=== PATIENT | female | born 1960 | race Caucasian/White ===

== ENCOUNTER 2017-05-18 11:00 | Inpatient (IN) | payer OTHER ==
[~2017-05-18] VITALS: Ht 162.6 cm; Wt 87.9 kg
[2017-05-26] MEDS ORDERED: ESCI20TA PO (11:19)
[2017-05-26] MEDS ORDERED: LEVO88TA2 PO (11:19)
[2017-05-26] MEDS ORDERED: MELO-1 PO (11:19)
[2017-05-26] MEDS ORDERED: ATOR20TA15 PO (11:19)
--- NOTE | 2017-05-26 17:39 | MH ---
cc: Ovidio WORRELL M.D. DATE OF ADMISSION: 06/01/2017 ADMITTING DIAGNOSIS: Failed partial knee replacement left knee now being admitted for conversion to a left total knee. ADMISSION HISTORY AND PHYSICAL This follow this 56-year female is being admitted today for conversion of left total knee to with a partial knee to a full total knee revision, secondary to failure. OTHER PAST HISTORY: The patient has a history of a arthritis Depression Back pain Thyroid issues High cholesterol. MEDICATIONS The patient is currently taking medications including; 1. Avastin 2. Levothyroxine 3. Pantoprazole PREVIOUS SURGERIES: Previous surgeries include the partial knee replacement on the left knee 2 years ago. She has had surgery on her back. Hand surgery. Hysterectomy. SOCIAL HISTORY: She does not smoke, drinks some alcohol and has. no known allergies. REVIEW OF SYSTEMS Noncontributory. FAMILY HISTORY Noncontributory. PHYSICAL EXAMINATION IN GENERAL: We find a 56-year female well-developed, well-nourished, alert and oriented x3. complaining of pain in the left knee. VITAL SIGNS: Blood pressure 132/84, pulse 90 and regular, respirations 18, temperature 97.9, pulse oximetry 96% on room air. HEAD, EYES, EARS, NOSE, AND THROAT: Eyes Pupils equal, round, reactive to light and accommodation. Extraocular muscles intact, Ears, nose, mouth clear. NECK: Supple. LUNGS: Clear. HEART: Regular rate. ABDOMEN: Soft. Positive bowel sounds, nontender. EXTREMITIES: The left knee have crepitance on range of motion NEUROLOGIC: Neurovascularly her toes. IMPRESSION Failed partial knee replacement left knee. PLAN Admission for a revision left total knee, partial knee november, total knee today. The patient understands procedure well and risks involved and is given prescription postoperative pain anticoagulation control in the office plans on going home after surgical stay in the hospital. MD MAC Rick/shayy /5:13 PM /5:21 PM
[2017-06-01] MEDS ORDERED: LACTATED RINGER'S 1000 ML IV PRN (06:15)
[2017-06-01] MEDS ORDERED: METOPROLOL TARTRATE 25 MG TAB PO PRN (06:15)
[2017-06-01] MEDS ORDERED: INSULIN HUMAN REGULAR 1,000 UNITS/10 ML VIAL SQ PRN (06:15)
[2017-06-01] MEDS ORDERED: POVIDONE IODINE 5% (ANTISEPSIS KIT) 4 APPLICATIONS EACH NARE PRN (06:15)
[2017-06-01] MEDS ORDERED: CHLORHEXIDINE GLUCONATE 2 % 1 PACK (2 CLOTHS) TOPICAL PRN (06:15)
[2017-06-01] MEDS ORDERED: SODIUM CHLORID 0.9% 500 ML IV PRN (06:15)
[2017-06-01] MEDS ORDERED: TRANEXAMIC ACID INJ 880 MG in SODIUM CHLORIDE 0.9% INJ 100 ML IV SCH ×4 (06:30)
[2017-06-01] MEDS ORDERED: CHLORHEXIDINE GLUCONATE 4% SOLN 120 ML BTL TOPICAL SCH (06:30)
[2017-06-01] MEDS ORDERED: VANCOMYCIN 1000 MG/NS 250 ML (for <70 kg) IV SCH ×2 (06:30)
[2017-06-01] MEDS ORDERED: EXPAREL PERI-ARTICULAR INJECTION (TOTAL VOL. 120 ML) P-ARTICULR SCH ×2 (06:30)
[2017-06-01] MEDS ORDERED: ceFAZolin 2 GM PREMIX 50 ML IV SCH (06:30)
[2017-06-01] MEDS ORDERED: TOBRAMYCIN SULFATE 1200 MG VIAL ONE ×2 (06:40→10:21)
[2017-06-01] MEDS ORDERED: ceFAZolin INJ 1,000 MG VIAL ONE (06:41)
[2017-06-01] MEDS ORDERED: ACETAMINOPHEN 1000 MG/100 ML 100 ML IV ONE (07:36)
[2017-06-01] MEDS ORDERED: FAMOTIDINE 20 MG/2 ML VIAL ONE (07:36)
--- NOTE | 2017-06-01 11:28 | HHI.FF ---
Face to Face Verification Diagnosis: (1) Status post revision of total replacement of left knee Physical Therapy Gait training Knee: Total knee, Protocol: Left, Full weight bearing Canvas Knee Splint: When in bed & 2 pillows btw thighs Nursing RN: 3 days/week x 2 weeks Nursing: Dressing changes Dressing Changes: Daily dressing change, 4x4s, Gauze, Paper tape I have seen patient Isamar Kenyon on 06/01/17. My clinical findings support the need for the requested home health care services because: Limited ability to care for self High risk of falls I certify that my clinical findings support that this patient is homebound because: Unsteady gait/balance Ovidio Clark MD Jun 01, 2017 11:28
[2017-06-01] MEDS ORDERED: ACETAMINOPHEN 325 MG TAB PO PRN (11:30)
[2017-06-01] MEDS ORDERED: WALKER WHEELS/F1 MIS (11:30)
[2017-06-01] MEDS ORDERED: SODIUM CHLORIDE 0.9% FLUSH 5 ML FLUSH IVF PRN (11:30)
[2017-06-01] MEDS ORDERED: Post-op Orders (for Pharmacy) MISC XX ONE (11:30)
[2017-06-01] MEDS ORDERED: ONDANSETRON HCL 4 MG/2 ML VIAL IVP PRN (11:30)
[2017-06-01] MEDS ORDERED: CPMMACHINE (11:30)
[2017-06-01] MEDS ORDERED: diphenhydrAMINE HCL 50 MG/ML VIAL IV PUSH PRN (11:30)
[2017-06-01] MEDS ORDERED: TRANEXAMIC ACID INJ 0 MG in SODIUM CHLORIDE 0.9% INJ 100 ML IV SCH (11:30)
[2017-06-01] MEDS ORDERED: NALOXONE HCL 0.4 MG/ML AMP IV PUSH PRN (11:30)
[2017-06-01] MEDS ORDERED: ADJUSTABLE COMM1 MIS (11:30)
[2017-06-01] MEDS ORDERED: DO NOT ADM ANY ANTICOAGULANT DRUGS PRN (11:37)
--- NOTE | 2017-06-01 11:41 | HHI.PR ---
Immediate Post Op Note Procedure Date: Jun 01, 2017 Pre Op Diagnosis: Failed partial knee replacement left knee Post Op Diagnosis: Failed partial knee replacement left knee Surgeon: Ovidio Clark MD Senior Talent Acquisition Specialist(s): Radha SIMPSON Procedure: partial knee replacement left knee conversion to a left total knee. Complications: none Specimen(s) removed: Left knee fluid Estimated blood loss: 200 cc Anesthesia: General Drains: None IVF Urinary Output (mLs): 0 (no rachel) Tourniquet time (min at mmHg) Left thigh 300 mmHg for 95 minutes Patient to: PACU Patient Condition: Good Implant/Devices: SEE IMPLANT LOG (if applicable) Date/Time of Procedure: SEE SURGICAL CARE RECORD Radha Fuller Jun 01, 2017 11:41
[2017-06-01] MEDS: LACTATED RINGER'S 1000 ML INJ 1,000 ML IV SCH ×2 (11:49→23:51)
[2017-06-01] MEDS ORDERED: *morphine SULFATE 8 MG/ML PERIprocedure ONLY ONE ×2 (11:53→12:56)
--- NOTE | 2017-06-01 12:26 | RADRPT ---
EXAM DATE/TIME: 06/01/2017 11:54 [facility] COMPARISON: KNEE LEFT LTD (1 OR 2VWS), December 18, 2014, 13:00. INDICATIONS : Total left knee replacemtn. MEDICAL HISTORY : Osteoarthritis. SURGICAL HISTORY : None. ENCOUNTER: Initial ACUITY: 1 day PAIN SCORE: Non-responsive. LOCATION: Left knee FINDINGS: AP and lateral views of the knee following arthroplasty reveals a prosthesis in anatomic alignme nt. Surgical drains are evident. Fracture is not appreciated. IMPRESSION: Status post total knee arthroplasty. Noe Culver MD FACR Board Certified Radiologist. This report was verified electronically.
--- NOTE | 2017-06-01 13:16 | MP ---
cc: Ovidio WORRELL M.D. DATE OF SURGERY 06/01/2017 PREOPERATIVE DIAGNOSIS Failed unicondylar knee arthroplasty left knee. POSTOPERATIVE DIAGNOSIS Failed unicondylar knee arthroplasty left knee. SURGERY PERFORM Revision of left knee arthroplasty to full total knee. SURGEON Dr. Worrell CLIENT SOLUTIONS SPECIALIST CALVIN Michael ANESTHESIA General intubation and block PROCEDURE FOLLOWS After successful induction of anesthesia, the patient is placed on the operating room table in the supine position. The knee is prepped and draped in the usual manner. A tourniquet is inflated at the upper thigh and set to 300 mmHg pressure after exsanguination of the lower extremity. A longitudinal incision is made extending from 3 inches proximal to the superior pole of the patella, across the patella in longitudinal fashion, and down past the insertion of the tibial tubercle into the proximal tibia. The incision is carried down through subcutaneous tissue along the medial aspect of the patella and retinaculum, down through the capsule to expose the knee joint. The patella and patellar tendon are freed up enough to allow the patella to be inverted and retracted off the lateral side of the knee joint. The knee joint is left exposed. Small osteophytes are removed. All soft tissue is removed to allow proper position of the femoral and tibial cutting jig guide. The first femoral jig is then inserted along the distal end of the femur after first measuring to decide whether this is a small, medium, or large component. The notch is then drilled and the tibial cutting guide inserted into the femoral cutting guide, along with the ankle brace to allow for proper measurement of the tibial cutting surface that needed to be resected. Pins are inserted into the tibial cutting jig and femoral cutting jig to hold them in place. An oscillating saw is then used to resect the surface of the tibia. The surface of the tibia is then completely removed using sharp and blunt dissection. The anterior and posterior cuts of the femur are then made as well using an oscillating saw through the cutting guide. All guides are then removed and the varus/valgus angulation cutting guide applied to the femur for proper measurement of the proper amount of valgus. The anterior cutting guide for the femur is then inserted at the anterior femoral cuts made. Next, the first block trial is inserted into the femur to allow for proper condyle drill holes to be made which are then made followed by removal of the bone between the condyles using an oscillating saw as well as the bone removed at the most posterior surface of the condyle. After this, this guide is removed and the chamfer cuts made using the chamfer cutting guide from both anterior and posterior. Next, the femoral trial is then inserted, the tibial surface reflected anterior to expose the tibial surface and a tibial stem guide is inserted after first measuring for a standard, standard plus, large, or large plus surface to be used. After the stem is impacted the trial tibial surface is applied followed by the trial meniscal components. After full range of motion is found with the appropriate length meniscal components varying the patella is prepared by resecting the posterior aspect of the patella using an oscillating saw, inserting a trial. The trial is then removed and the cruciate cutting guide applied using the bur to cut the cruciate cuts. After cruciate cuts are made all trials are removed. The partial knee replacement that was in there was removed by doing the standard cuts and using osteotomes to remove the old prosthesis. Culture and sensitivity revealed a few white cells. No bacteria seen. Antibiotics were then given. The wound is irrigated copiously with antibiotic solution and Water Pik and the actual components inserted into place using Consensus knee system, size 3 femur, 2 tibia and 1 patella with three batches of antibiotic-impregnated Seafileuy cement. After the cement has hardened and the components are found to have full range of motion with no instability, the tourniquet deflated, total tourniquet time being 95 minutes at 300 mmHg pressure. The deep fascia was approximated with running #2 Quill, the subcutaneous tissue approximated with interrupted running 2-0 and 3-0 Monocryl sutures, Steri-Strips, sterile dressing and knee immobilizer. 100 cc of Exparel was also utilized for extra pain control. The patient tolerated the procedure well and left the Operating Room in satisfactory condition. ESTIMATED BLOOD LOSS 200 cc. COUNTS Sponge and suture counts were correct. Fatou SIMPSON was present during the entire procedure to include patient positioning and the procedure. The medical necessity of a nurse practitioner first aid trainer was indicated in this case due to the surgical complexity of the case itself. During the surgical case the hand frame surgical elastic knitter was working the back table while my operating room surgical technician CALVIN was directly assisting me. J. MD MAC Everett/JOSUE /11:32 AM /1:03 PM
[2017-06-01] MEDS ORDERED: ONDANSETRON HCL 4 MG/2 ML VIAL IV PUSH ONE (14:49)
[2017-06-01] MEDS ORDERED: MIDAZOLAM HCL 2 MG/2 ML VIAL IV ONE (14:49)
[2017-06-01] MEDS ORDERED: GLYCOPYRROLATE 1 MG/5 ML SYRINGE IV PUSH ONE (14:49)
[2017-06-01] MEDS ORDERED: PHENYLEPH/NS 1000 MCG/10 ML SYR IV ONE (14:49)
[2017-06-01] MEDS ORDERED: NEOSTIGMINE 3 MG/3 ML SYR IV ONE (14:49)
[2017-06-01] MEDS ORDERED: LACTATED RINGER'S 1000 ML INJ 1,000 ML IV ONE (14:49)
[2017-06-01] MEDS ORDERED: ROCURONIUM INJ 50 MG/5 ML SYRINGE IV PUSH ONE (14:49)
[2017-06-01] MEDS ORDERED: ePHEDrine/NS 25 MG/5 ML SYR IV ONE (14:49)
[2017-06-01] MEDS ORDERED: MORPHINE SULFATE 4 MG/ML INJ IV ONE (14:49)
[2017-06-01] MEDS ORDERED: LABETALOL HCL 20 MG/4 ML VIAL IV ONE (14:49)
[2017-06-01] MEDS ORDERED: DEXAMETHASONE SOD PHOS 4 MG/ML VIAL IV ONE (14:49)
[2017-06-01] MEDS ORDERED: PROPOFOL 200 MG/20 ML AMP IV ONE (14:49)
[2017-06-01] MEDS ORDERED: LIDOCAINE HCL 1% PF 5 ML AMPULE OTHER ONE (14:49)
[2017-06-01] MEDS: MORPHINE SULFATE 4 MG/ML INJ IV PUSH PRN ×2 (16:20→20:38)
[2017-06-01 16:30] VITALS: BP 127/65; PULSE 90; RESP 16; TEMP 96.3; O2SAT 95
[2017-06-01] MEDS: ACETAMINOPHEN/HYDROcodone 325 MG/7.5 MG TAB PO PRN ×2 (18:34→23:27)
[2017-06-01 20:38] VITALS: BP 109/65; PULSE 81; RESP 18; TEMP 97.6
[2017-06-01] MEDS: SODIUM CHLORIDE 0.9% FLUSH 5 ML FLUSH IVF SCH (20:39)
[2017-06-01] MEDS: ATORVASTATIN 20 MG TAB PO SCH (20:39)
[2017-06-01] MEDS ORDERED: TEMAZEPAM 15 MG CAP PO PRN (21:00)
[2017-06-02] VITALS (7 sets, daily range): BP systolic 104–154; BP diastolic 59–81; PULSE 70–96; RESP 16–18; TEMP 96.4–98.5; O2SAT 95–99
[2017-06-02] MEDS: MORPHINE SULFATE 4 MG/ML INJ IV PUSH PRN ×2 (02:01→06:00)
[2017-06-02] MEDS: LACTATED RINGER'S 1000 ML INJ 1,000 ML IV SCH ×3 (02:02→22:24)
[2017-06-02] MEDS: ACETAMINOPHEN/HYDROcodone 325 MG/7.5 MG TAB PO PRN ×4 (03:26→22:23)
[2017-06-02] MEDS: LEVOTHYROXINE SODIUM 88 MCG TAB PO SCH (06:00)
[2017-06-02] MEDS: ESCITALOPRAM OXALATE 20 MG TAB PO SCH (08:10)
[2017-06-02] MEDS: SODIUM CHLORIDE 0.9% FLUSH 5 ML FLUSH IVF SCH ×2 (09:00→22:24)
[2017-06-02 09:06] LABS: HEMATOCRIT 32.6 % (35.0-46.0); REVIEW FLAG FINAL
--- NOTE | 2017-06-02 10:45 | PD.ORT.PN ---
Subjective Subjective Remarks Pt comfortable but has developed a rash on the operative leg that she associates with the sheepskin from the CPM machine. Objective Vitals Vital Signs Date Time Temp Pulse Resp B/P (MAP) Pulse Ox O2 Delivery O2 Flow Rate FiO2 06/02/17 08:00 97.2 96 16 104/81 (89) 96 06/02/17 04:10 97.7 88 18 110/59 (76) 95 06/02/17 00:20 96.4 96 18 154/78 (103) 96 06/01/17 20:38 97.6 81 18 109/65 (80) 06/01/17 16:40 16 06/01/17 16:30 96.3 90 16 127/65 (85) 95 06/01/17 16:00 97.2 85 16 127/62 (83) 95 Nasal Cannula 2 06/01/17 15:20 81 14 93 Nasal Cannula 2 06/01/17 15:00 100 16 129/68 (88) 95 Room Air 06/01/17 14:45 87 16 115/60 (78) 95 Nasal Cannula 2 06/01/17 14:00 80 16 119/64 (82) 97 Nasal Cannula 2 06/01/17 13:15 84 16 137/64 (88) 95 Nasal Cannula 2 06/01/17 12:30 90 16 148/76 (100) 97 Nasal Cannula 2 06/01/17 12:15 89 16 158/74 (102) 97 Nasal Cannula 2 06/01/17 12:00 88 16 148/66 (93) 97 Nasal Cannula 2 06/01/17 11:45 94 16 158/74 (102) 95 Nasal Cannula 2 06/01/17 11:34 97.9 90 16 165/75 (105) 94 Nasal Cannula 2 I/O 06/01/17 06/01/17 06/01/17 06/02/17 06/02/17 06/02/17 07:00 15:00 23:00 07:00 15:00 23:00 Intake Total 1960 ml 1318 ml 1090 ml 240 ml Output Total 3450 ml Balance -1490 ml 1318 ml 1090 ml 240 ml Intake Oral 360 ml 780 ml 240 ml IV Total 1600 ml 538 ml 1090 ml Output Urine Total 250 ml Estimated Blood Loss 200 ml Other 3000 ml # Voids 2 2 # Bowel Movements 0 0 Result Diagram: 06/02/17 0820 Objective Remarks Rash is macular and not near the incision line. She is otherwise neurovascularly intact to her toes. There is no calf tenderness. She is sitting up in a chair. Assessment & Plan Ortho Post Op Day #: 1 Problem List: Assessment and Plan Cortisone cream for the rash. Continue with physical therapy out of bed. Plan on home over the next few days with home healthcare and physical therapy. Ovidio Clark MD Jun 02, 2017 10:45
[2017-06-02] MEDS: APIXABAN 2.5 MG TABLET PO SCH ×2 (13:07→22:19)
[2017-06-02] MEDS: MULTIVITAMINS/MINERALS THERAPEUTIC TAB PO SCH (22:19)
[2017-06-02] MEDS: ATORVASTATIN 20 MG TAB PO SCH (22:19)
[2017-06-02] MEDS: DOCUSATE SODIUM 100 MG CAP PO SCH (22:19)
[2017-06-03 00:05] VITALS: BP 151/71; PULSE 116; RESP 16; TEMP 99.4; O2SAT 92
[2017-06-03 04:10] VITALS: BP 134/33; PULSE 112; RESP 17; TEMP 99.5; O2SAT 92
[2017-06-03] MEDS: ACETAMINOPHEN/HYDROcodone 325 MG/7.5 MG TAB PO PRN ×4 (04:16→13:45)
[2017-06-03] MEDS: LEVOTHYROXINE SODIUM 88 MCG TAB PO SCH (06:22)
[2017-06-03 07:08] LABS: HEMATOCRIT 29.8 % (35.0-46.0); REVIEW FLAG FINAL
--- NOTE | 2017-06-03 07:52 | PD.ORT.PN ---
Subjective Subjective Remarks Pt comfortable and feels the rash is better today. Objective Vitals Vital Signs Date Time Temp Pulse Resp B/P (MAP) Pulse Ox O2 Delivery O2 Flow Rate FiO2 06/03/17 04:10 99.5 112 17 134/33 (66) 92 06/03/17 00:05 99.4 116 16 151/71 (97) 92 06/02/17 20:10 97.2 96 16 131/59 (83) 99 06/02/17 16:00 98.5 88 16 108/68 (81) 96 06/02/17 12:00 96.9 70 16 116/60 (78) 95 06/02/17 11:02 98 06/02/17 08:00 97.2 96 16 104/81 (89) 96 I/O 06/02/17 06/02/17 06/02/17 06/03/17 06/03/17 06/03/17 07:00 15:00 23:00 07:00 15:00 23:00 Intake Total 1090 ml 840 ml 480 ml 240 ml Balance 1090 ml 840 ml 480 ml 240 ml Intake Oral 840 ml 480 ml 240 ml IV Total 1090 ml # Voids 5 3 1 # Bowel Movements 0 0 0 Result Diagram: 06/03/17 0637 Objective Remarks She is otherwise neurovascularly intact to her toes. There is no calf tenderness. She is in bed at present. Assessment & Plan Ortho Post Op Day #: 2 Problem List: Assessment and Plan Home today after physical therapy with instructions for home healthcare and physical therapy. Follow-up in the office next week. Ovidio Clark MD Jun 03, 2017 07:52
--- NOTE | 2017-06-03 07:55 | HHI.DS ---
Discharge Summary Admission Date Jun 01, 2017 at 05:56 Discharge Date: Jun 03, 2017 Admitting Diagnosis Failed left knee arthroplasty. Diagnosis: (1) Status post revision of total replacement of left knee Diagnosis: Principal ICD Codes: Z96.652 - Presence of left artificial knee joint Brief History This is a 56 year old female patient CBC/BMP: 06/03/17 0637 Significant Findings Laboratory Tests Test 06/02/17 08:20 06/03/17 06:37 Hemoglobin 11.1 GM/DL (11.6-15.3) 10.5 GM/DL (11.6-15.3) Hematocrit 32.6 % (35.0-46.0) 29.8 % (35.0-46.0) PE at Discharge She is otherwise neurovascularly intact to her toes. There is no calf tenderness. She is in bed at present. Hospital Course Patient underwent a revision to a full total knee arthroplasty of her left knee on day of admission. She received a course of prophylactic IV antibiotics and within 23 hours started on anticoagulation therapy. She continued to improve remaining afebrile vital signs stable began out of bed tolerating food and fluid and physical therapy well. She did develop a macular rash which faded on postoperative day 2. She was discharged to home on postoperative day 2 in good condition with instructions for continuation of physical therapy and daily wound care. She has instructions for follow-up in the office the following week for recheck. Pt Condition on Discharge: Good Discharge Disposition: Disch w/ Home Health Serv Discharge Instructions Diet Instructions: As Tolerated, No Restrictions Activities You Can Perform: Full Weight Bearing, Shower Only-No Bath Activities to Avoid: Bathing, Driving Ovidio Clark MD Jun 03, 2017 07:55
[2017-06-03 08:00] VITALS: BP 122/61; PULSE 104; RESP 18; TEMP 96.9; O2SAT 94
[2017-06-03] MEDS: MULTIVITAMINS/MINERALS THERAPEUTIC TAB PO SCH (08:42)
[2017-06-03] MEDS: ESCITALOPRAM OXALATE 20 MG TAB PO SCH (08:42)
[2017-06-03] MEDS: DOCUSATE SODIUM 100 MG CAP PO SCH (08:42)
[2017-06-03] MEDS: APIXABAN 2.5 MG TABLET PO SCH (08:42)
[2017-06-03] MEDS: SODIUM CHLORIDE 0.9% FLUSH 5 ML FLUSH IVF SCH (08:48)
[2017-06-03] MEDS ORDERED: BACITRACIN OINT 0.9 GM PKT TOP PRN (10:15)
[2017-06-03 12:00] VITALS: BP 127/59; PULSE 102; RESP 18; TEMP 98.1; O2SAT 96
[2017-06-03] MEDS: LACTATED RINGER'S 1000 ML INJ 1,000 ML IV SCH (13:21)
== END 2017-06-03 16:11 | disposition home health service (06) | DRG 468 ==
LOC: HSDI 06-01 05:56 → N06B 06-01 16:44
PROVIDERS: ADMIT Surgery; ATTEND Surgery
PROC: 0SRD0J9 Replacement of Left Knee Joint with Synthetic Substitute, Cemented, Open Approach (ICD-10-PCS; 2017-06-01)
PROC: 3E0T3BZ Introduction of Anesthetic Agent into Peripheral Nerves and Plexi, Percutaneous Approach (ICD-10-PCS; 2017-06-01)
PROC: 0SPD0JZ Removal of Synthetic Substitute from Left Knee Joint, Open Approach (ICD-10-PCS; principal; 2017-06-01 07:59)
DX: T84.093A Other mechanical complication of internal left knee prosthesis, initial encounter (principal); E78.00 Pure hypercholesterolemia, unspecified; R21 Rash and other nonspecific skin eruption; Y79.2 Prosthetic and other implants, materials and accessory orthopedic devices associated with adverse incidents
CPT/HCPCS: 73560; 85014; 85018; 86850; 86900; 86901; 87070; 87205; 94150; C1776; C9290; J0131; J0690; J1100; J1200; J2250; J2270; J2370; J2405; J2710; J3010; J3260; J3370; J7050; J7120; L1830

== ENCOUNTER → 2017-05-26 | Outpatient (CLI) | payer OTHER ==
[~2017-05-26] MED LIST: ADJUSTABLE COMM1 MIS; ATOR20TA15 PO; CPMMACHINE; ESCI20TA PO; EXTR500C PO; LEVO88TA2 PO; MELO-1 PO; WALKER WHEELS/F1 MIS
[2017-05-26 10:42] LABS: HEMATOCRIT 40.4 % (35.0-46.0); MEAN CELL VOLUME 87.2 FL (80.0-100.0); MEAN CORPUSCULAR HEMOGLOBIN 29.3 PG (27.0-34.0); MEAN CORPUSCULAR HGB CONC 33.6 % (32.0-36.0); PLATELET COUNT 265 TH/MM3 (150-450); RED BLOOD COUNT 4.63 MIL/MM3 (4.00-5.30); RED CELL DISTRIBUTION WIDTH 13.4 % (11.6-17.2); REVIEW FLAG FINAL; WHITE BLOOD COUNT 5.2 TH/MM3 (4.0-11.0)
[2017-05-26 10:50] LABS: GLUCOSE,URINE NEG (NEG); KETONE, URINE NEG (NEG); MUCUS URINE FEW /lpf (OCC); PH, URINE 6.5 (5.0-8.5); SQUAMOUS EPITHELIAL CELL URINE 1 /hpf (0-5); URINE COLOR YELLOW (YELLW/STRAW)
[2017-05-26 10:51] LABS: BLOOD, URINE TRACE (NEG)
[2017-05-26 10:52] LABS: COMMENT (UR) CULT NOT INDICATED; CULTURE IF INDICATED CULT NOT INDICATED; NITRITE,URINE NEG (NEG)
[2017-05-26 10:58] LABS: APTT (PATIENT) 28.5 SEC (24.3-30.1); INTERNATIONAL NORMALIZED RATIO 0.9 RATIO; PROTHROMBIN TIME - PATIENT 10.3 SEC (9.8-11.6)
[2017-05-26 11:05] LABS: ANION GAP 8 MEQ/L (5-15); AST (GOT) 18 U/L (15-37); BICARBONATE 25.9 MEQ/L (21.0-32.0); BLOOD UREA NITROGEN 12 MG/DL (7-18); CHLORIDE 107 MEQ/L (98-107); GLOMERULAR FILTRATION RATE 120 ML/MIN (>89); GLUCOSE,FASTING 97 MG/DL (74-99); POTASSIUM 4.1 MEQ/L (3.5-5.1); SODIUM (NA) 141 MEQ/L (136-145)
[2017-05-26 11:06] LABS: ALT (GPT) 22 U/L (10-53)
[2017-05-26 11:08] LABS: ALKALINE PHOSPHATASE 136 U/L (45-117); TOTAL BILIRUBIN ADULT 0.6 MG/DL (0.2-1.0)
--- NOTE | 2017-05-26 13:22 | EKG ---
Date Performed: 05/26/2017 Time Performed: 09:36:34 PTAGE: 56 years EKG: Sinus rhythm NORMAL ECG PREVIOUS TRACING : 12/18/2014 09.19 Compared to prior tracing no significant change DOCTOR: Chauncey Rodriguez Interpretating Date/Time 05/26/2017 13:21:35
== END ==
LOC: CPRE 09:03
PROVIDERS: ATTEND Surgery
DX: Z01.812 Encounter for preprocedural laboratory examination (principal); Z01.810 Encounter for preprocedural cardiovascular examination
CPT/HCPCS: 36415; 80053; 81001; 85027; 85610; 85730; 93005

== ENCOUNTER → 2017-08-06 | Day surgery (SDC) | payer OTHER ==
--- NOTE | 2017-08-05 12:51 | MH ---
cc: Ovidio WORRELL M.D. DATE OF ADMISSION 08/06/2017 ADMITTING DIAGNOSIS Frozen left total knee arthroplasty, now being admitted for manipulation under anesthesia, left knee. HISTORY OF PRESENT ILLNESS This 56-year-old female is being admitted today almost nine weeks status post revision left total knee arthroplasty. She has a frozen left knee and is now for manipulation. PAST MEDICAL HISTORY 1. Arteriosclerosis. 2. Carpal tunnel syndrome. 3. Hyperlipidemia. MEDICATIONS Current medications include: 1. Aspirin 81 mg daily. 2. Atorvastatin. 3. Citalopram. 4. Levothyroxine. REVIEW OF SYSTEMS Noncontributory. FAMILY HISTORY Noncontributory. PAST SURGICAL HISTORY Other than the surgeries on her left knee, no other surgeries. SOCIAL HISTORY She does not smoke or drink. ALLERGIES No known allergies. PHYSICAL EXAMINATION GENERAL: We find a 56-year-old female, well-developed, well-nourished, oriented x3 complaining of restricted motion in her left knee. VITAL SIGNS: Blood pressure 130/88, pulse 80 and regular, respirations 18, temperature 98.2. HEENT: Eyes PERRLA, EOMI. Ears, nose and mouth clear. NECK: Supple. LUNGS: Clear. HEART: Regular rate. ABDOMEN: Soft. Positive bowel sounds. Nontender. EXTREMITIES: The left knee has range of motion from -5 extension to 90 of flexion. IMPRESSION The impression at this time is frozen left total knee arthroplasty. PLAN The plan is admission for manipulation under anesthesia left total knee arthroplasty today. The patient was given a prescription for postoperative pain control in the office. MD MAC Rick/JEANA /12:35 PM /12:41 PM
[~2017-08-06] VITALS: Ht 162.6 cm; Wt 86.0 kg
[~2017-08-06] MED LIST changes: +*MEPERIDINE 25 MG INJ VIAL PERIprocedural Use ONLY ONE; +ACETAMINOPHEN/HYDROcodone 325 MG/5 MG TAB ONE; +ASPI81TA23 PO; +BUPIVACAINE HCL PF 0.5% 30 ML VIAL ONE; +CHLORHEXIDINE GLUCONATE 2 % 1 PACK (2 CLOTHS) TOPICAL PRN; +DEXAMETHASONE SOD PHOS 4 MG/ML VIAL ONE; -EXTR500C PO; +FAMOTIDINE 20 MG/2 ML VIAL ONE; +LACTATED RINGER'S 1000 ML IV PRN; -MELO-1 PO; +METOPROLOL TARTRATE 25 MG TAB PO PRN; +MIDAZOLAM HCL 2 MG/2 ML VIAL ONE; +NORC5TAB PO; +POVIDONE IODINE 5% (ANTISEPSIS KIT) 4 APPLICATIONS EACH NARE PRN; +SODIUM CHLORID 0.9% 500 ML IV PRN
[2017-08-06 10:28] VITALS: TEMP 98.4
[2017-08-06 11:45] VITALS: BP 139/82; PULSE 77; RESP 14; O2SAT 100
--- NOTE | 2017-08-08 06:30 | MP ---
cc: [facility] DATE OF SURGERY: 08/06/2017 PREOPERATIVE DIAGNOSIS: Frozen left total knee arthroplasty. POSTOPERATIVE DIAGNOSIS: Frozen left total knee arthroplasty. OPERATION: Manipulation under anesthesia, left knee. SURGEON: Ovidio Clark MD. TYPE OF PROCEDURE: Abductor block and Diprivan. PROCEDURE: Patient brought to the operating room where once anesthesia was performed knee was tested first without range of motion of left knee was from -3 short of full extension to 85 of flexion. After pushing on the knee under anesthesia and breaking of adhesions range of motion was from minus 2, to 130 degrees of flexion. The patient tolerated the procedure well. We put on CPM machine and immediately and they will start physical therapy the following day. She tolerated the procedure well left the operating room in satisfactory condition. J. Clem Clark MD JRRadha/mh /10:17 AM /6:12 AM
== END | disposition home or self-care (01) ==
LOC: PHSDC 07:03
PROVIDERS: ATTEND Surgery
DX: M25.662 Stiffness of left knee, not elsewhere classified (principal); E78.5 Hyperlipidemia, unspecified; Z96.652 Presence of left artificial knee joint; Z79.82 Long term (current) use of aspirin
CPT/HCPCS: 01380; 27570; J1100; J2175; J2250; J7120